=== PATIENT | male | born 1985 | race Caucasian/White ===

== ENCOUNTER 2018-11-16 15:49 | Emergency (ER) | payer MEDICAID ==
[~2018-11-16] VITALS: Ht 182.9 cm; Wt 136.4 kg
[2018-11-16] MEDS ORDERED: proparacaine 0.5% ophthalmic drops 15ml EACHEYE ONE (16:40)
== END 2018-11-16 18:13 | disposition home or self-care (01) ==
LOC: ER 15:51
DX: S05.01XA Injury of conjunctiva and corneal abrasion without foreign body, right eye, initial encounter (principal); F17.200 Nicotine dependence, unspecified, uncomplicated; Z88.6 Allergy status to analgesic agent; W22.8XXA Striking against or struck by other objects, initial encounter; Y93.89 Activity, other specified; Y92.89 Other specified places as the place of occurrence of the external cause; Y99.8 Other external cause status
CPT/HCPCS: 99283

== ENCOUNTER 2019-02-25 12:45 | Emergency (ER) | payer MEDICAID ==
[~2019-02-25] VITALS: Ht 182.9 cm; Wt 120.0 kg
[2019-02-25] MEDS ORDERED: SULF1TAB49 PO (14:03)
[2019-02-25 14:28] VITALS: BP 153/102
== END 2019-02-25 14:30 | disposition home or self-care (01) ==
LOC: ER 12:46
DX: L02.215 Cutaneous abscess of perineum (principal); L02.31 Cutaneous abscess of buttock; F17.200 Nicotine dependence, unspecified, uncomplicated; F10.99 Alcohol use, unspecified with unspecified alcohol-induced disorder; Z88.6 Allergy status to analgesic agent; Z79.899 Other long term (current) drug therapy; Y90.9 Presence of alcohol in blood, level not specified
CPT/HCPCS: 99283

== ENCOUNTER 2020-02-18 22:27 | Emergency (ER) | payer MEDICAID, OTHER ==
[~2020-02-18] VITALS: Ht 182.9 cm; Wt 110.2 kg
[2020-02-18 22:32] VITALS: BP 134/83
--- NOTE | 2020-02-18 23:39 | NUR ---
awaiting testicular us.
--- NOTE | 2020-02-19 01:17 | NUR ---
has requested patient give a urine sample, he has refused straight cath and says he cannot urinate. Dr. Watson is aware and says he is just delaying care.
--- NOTE | 2020-02-19 01:45 | NUR ---
PT REFUSING TO GIVE URINE SAMPLE AND PATIENT REFUSES TO ALLOW A CATH UA. EDICATED PATIENT THAT A URINE SPECIAMN NEEDS TO BE OBTAINED TO DX TX. PT STILL PRETTY ADAMIT ABOUT NOT GIVING A URINE SAMPLE , PT STATING THAT HE HAS A PAROLE APPT AT 09 AND NEEDS DOCUMENTATION THAT HE IS BEING SEEN . PT STILL REFUSING TO GIVE URINE SAMPLE , TO DX , STATING HE WANTS TO LEAVE .
--- NOTE | 2020-02-19 01:47 | NUR ---
SPOKE WITH DR SALINAS AND CHARGE NURSE ABOUT PT WANTING TO AMA . WENT TO BEDSIDE AND AND EXPLAINED TO PATINE HE COULD HAVE A TECTCLE INFECTION OR UTI AND NEEDS TO PROVIDE A URINE SAMPLE . PT STILL REFUSING AT THIS TIME MD AND CHARGE NURSE AWARE.
--- NOTE | 2020-02-19 02:00 | NUR ---
PT AMA . VERBALIZED TO PATIENT HE IS LEAVING AGAINST MEDICAL ADVICE THAT HE RUNS THE RISK OF HAVING AN INFECTION THAT MAY GET WORSE OR EVEN DATH , PT VERBALIZED HE "UNDERSTANDS AND WANTS TO LEAVE NOW !"
== END 2020-02-19 02:00 | disposition left against medical advice (07) ==
LOC: ER 22:27
DX: N50.811 Right testicular pain (principal); N50.812 Left testicular pain; F17.200 Nicotine dependence, unspecified, uncomplicated; Z88.6 Allergy status to analgesic agent
CPT/HCPCS: 76870; 93976; 99284

== ENCOUNTER 2024-01-25 12:03 | Emergency (ER) | payer MEDICAID ==
[~2024-01-25] VITALS: Ht 182.9 cm; Wt 100.8 kg
[2024-01-25 12:11] VITALS: BP 142/92; PULSE 95; O2SAT 99
[2024-01-25] MEDS ORDERED: SULF1TAB49 PO (12:35)
[2024-01-25 13:10] VITALS: RESP 16; TEMP 98.4
== END 2024-01-25 13:12 | disposition home or self-care (01) ==
LOC: ER 12:03
DX: L02.239 Carbuncle of trunk, unspecified (principal); L02.229 Furuncle of trunk, unspecified; Z88.8 Allergy status to other drugs, medicaments and biological substances; Z79.899 Other long term (current) drug therapy
CPT/HCPCS: 99283; A6449

== ENCOUNTER 2024-03-21 23:38 | Inpatient (IN) | payer MEDICAID ==
[~2024-03-21] VITALS: Ht 188 cm; Wt 92.8 kg
[~2024-03-21 23:38] MED LIST: SULF1TAB49 PO
[2024-03-22 00:15] LABS: BASOPHILS % (AUTO) 0.4 % (0-1); EOSINOPHILS # (AUTO) 0.1 X10'3 (0-0.9); EOSINOPHILS % (AUTO) 0.8 % (0-6); HEMATOCRIT 36.9 % (42.0-52.0); HEMOGLOBIN 12.8 g/dl (14.0-17.9); LYMPHOCYTES # (AUTO) 2.4 X10'3 (1.1-4.8); LYMPHOCYTES % (AUTO) 18.8 % (21-51); MEAN CORPUSCULAR HEMOGLOBIN 31.8 PG (27.0-31.0); MEAN CORPUSCULAR HGB CONC 34.6 g/dL (33.0-36.5); MEAN PLATELET VOLUME 7.4 FL (7.4-10.4); MONOCYTES # (AUTO) 1.1 X10'3 (0-0.9); MONOCYTES % (AUTO) 8.7 % (2-12); NEUTROPHILS % (AUTO) 71.3 % (42-75); PLATELET COUNT 319 X10'3 (140-440); RED BLOOD COUNT 4.02 X10'6 (4.70-6.10); RED CELL DISTRIBUTION WIDTH 13.2 % (11.5-14.5); WHITE BLOOD COUNT 12.6 X10'3 (4.5-11.0)
[2024-03-22] MEDS: BUPIVAcaine/PF 7.5 mg/ml (0.75%) 30ml vial IJ ONE (00:15)
[2024-03-22 00:31] LABS: ALANINE AMINOTRANSFERASE 21 U/L (12-78); ALBUMIN 3.9 G/DL (3.4-5.0); ALKALINE PHOSPHATASE 95 IU/L (46-116); ANION GAP 10 (8-16); ASPARTATE AMINO TRANSFERASE 19 U/L (10-37); BILIRUBIN,TOTAL 0.6 MG/DL (0.1-1.0); BLOOD UREA NITROGEN 21 MG/DL (7-18); BUN/CREATININE RATIO 16.9 (10.0-20.0); CALCIUM 9.3 MG/DL (8.5-10.1); CHLORIDE 102 MMOL/L (99-107); CREATININE 1.24 MG/DL (0.60-1.10); GLUCOSE 117 MG/DL (70-104); POTASSIUM 3.6 MMOL/L (3.5-5.1); SODIUM 138 MMOL/L (135-145); TOTAL PROTEIN 7.9 G/DL (6.4-8.2); eCRCL 90 ML/MIN; eGFR 66 ML/MIN
[2024-03-22] MEDS: VANCOMYCIN 1,500MG inj. 1,500 MG in normal saline 500ml IV soln 300 ML IV ONE (01:39)
[2024-03-22] MEDS: TETanus/Pertussis (Acell)/Diphther VAC/PF (Tdap-Adult) 0.5ml syringe IMVAC ONE (03:24)
[2024-03-22] MEDS ORDERED: acetaminophen 325mg tablet PO PRN ×2 (04:05)
[2024-03-22] MEDS ORDERED: ondansetron/PF 4mg/2ml inj IV PRN (04:05)
[2024-03-22] MEDS ORDERED: mag hydrox/Alum hydrox/simeth 30ml oral suspension PO PRN (04:05)
[2024-03-22] MEDS ORDERED: potassium Cl 40MEQ/1/2NS 520ml 520 ML IV PRN (04:05)
[2024-03-22] MEDS ORDERED: magnesium Cl slow-release 64mg tablet PO PRN (04:05)
[2024-03-22] MEDS: normal saline 1000ml 1,000 ML IV SCH (04:05)
[2024-03-22] MEDS ORDERED: potassium Cl 20 mEq SR tablet PO PRN ×2 (04:05)
[2024-03-22] MEDS ORDERED: magnesium sulf-water 4G/100mL 100 ML IV PRN (04:05)
[2024-03-22] MEDS ORDERED: magnesium sulf-water 2g/50mL 50 ML IV PRN (04:05)
[2024-03-22] MEDS ORDERED: VANCOmycin 1250MG/NS 250ml Bag 250 ML IV SCH (05:00)
[2024-03-22] MEDS: K and/or MAG REPLACEMENT MC SCH (08:00)
[2024-03-22] MEDS: piperacillin/tazo 3.375gm/50ml 50 ML IV SCH (08:00)
[2024-03-22] MEDS: morphine 2 MG/ML inj. syringe IV PRN (11:21)
[2024-03-22] MEDS: HYDROcodone/acetaminophen 5mg/325mg tablet PO PRN (11:22)
[2024-03-22] MEDS: LORazepam 2 mg/ml vial IV ONE (12:21)
[2024-03-22] MEDS: VANCOmycin 1250MG/NS 250ml Bag 250 ML IV SCH (17:00)
[2024-03-22 18:00] VITALS: BP 118/67; PULSE 59; RESP 20; TEMP 97.2; O2SAT 95
[2024-03-22 22:00] VITALS: BP 117/82; PULSE 86; RESP 16; TEMP 97.4; O2SAT 96
[2024-03-23 06:23] VITALS: BP 110/69; PULSE 69; RESP 17; TEMP 96.8; O2SAT 100
[2024-03-23 06:40] LABS: BASOPHILS % (AUTO) 0.4 % (0-1); EOSINOPHILS # (AUTO) 0.1 X10'3 (0-0.9); EOSINOPHILS % (AUTO) 1.3 % (0-6); HEMATOCRIT 35.2 % (42.0-52.0); HEMOGLOBIN 12.1 g/dl (14.0-17.9); LYMPHOCYTES # (AUTO) 1.9 X10'3 (1.1-4.8); LYMPHOCYTES % (AUTO) 26.9 % (21-51); MEAN CORPUSCULAR HEMOGLOBIN 32.3 PG (27.0-31.0); MEAN CORPUSCULAR HGB CONC 34.5 g/dL (33.0-36.5); MEAN CORPUSCULAR VOLUME 93.7 FL (78-98); MEAN PLATELET VOLUME 8.2 FL (7.4-10.4); MONOCYTES # (AUTO) 0.6 X10'3 (0-0.9); MONOCYTES % (AUTO) 8.1 % (2-12); NEUTROPHILS # (AUTO) 4.5 X10'3 (1.8-7.7); NEUTROPHILS % (AUTO) 63.3 % (42-75); PLATELET COUNT 257 X10'3 (140-440); RED BLOOD COUNT 3.76 X10'6 (4.70-6.10); RED CELL DISTRIBUTION WIDTH 13.1 % (11.5-14.5); WHITE BLOOD COUNT 7.1 X10'3 (4.5-11.0)
[2024-03-23 06:51] LABS: ALANINE AMINOTRANSFERASE 15 U/L (12-78); ALBUMIN 2.9 G/DL (3.4-5.0); ALBUMIN/GLOBULIN RATIO 0.8 (1.1-1.5); ALKALINE PHOSPHATASE 69 IU/L (46-116); ANION GAP 7 (8-16); ASPARTATE AMINO TRANSFERASE 16 U/L (10-37); BILIRUBIN,TOTAL 0.5 MG/DL (0.1-1.0); BLOOD UREA NITROGEN 12 MG/DL (7-18); BUN/CREATININE RATIO 11.5 (10.0-20.0); CALCIUM 8.8 MG/DL (8.5-10.1); CHLORIDE 106 MMOL/L (99-107); CREATININE 1.04 MG/DL (0.60-1.10); GLUCOSE 85 MG/DL (70-104); MAGNESIUM 1.6 MG/DL (1.5-2.4); PHOSPHORUS 2.9 MG/DL (2.3-4.5); POTASSIUM 4.3 MMOL/L (3.5-5.1); SODIUM 140 MMOL/L (135-145); TOTAL PROTEIN 6.4 G/DL (6.4-8.2); eCRCL 114 ML/MIN; eGFR 81 ML/MIN
[2024-03-23 08:00] VITALS: RESP 16; O2SAT 97
[2024-03-23 10:08] VITALS: BP 124/65; PULSE 80; RESP 16; TEMP 97.9; O2SAT 98
[2024-03-23] MEDS: vancomycin/NS 1 GM ADD-VANTAGE 250 ML IV SCH (13:41)
[2024-03-23] MEDS ORDERED: SULF1TAB49 PO ×2 (14:23→14:49)
[2024-03-23] MEDS ORDERED: VANCOMYCIN LEVEL IV ONE (16:30)
[2024-03-24] MEDS ORDERED: VANCOMYCIN LEVEL IV ONE (12:30)
== END 2024-03-23 15:10 | disposition home or self-care (01) | DRG 720 ==
LOC: ER 23:38 → UNDOADMIN 03-22 04:10 → ED HOLD 03-22 04:10 → ORTHO 4S 03-22 08:45 → ED HOLD 03-22 08:45 → UNDODISIN 03-23 15:10
PROVIDERS: ADMIT Internal Medicine Critical Care Medicine; ATTEND Family Medicine
DX: A41.9 Sepsis, unspecified organism (principal); N17.9 Acute kidney failure, unspecified; L03.115 Cellulitis of right lower limb; R79.89 Other specified abnormal findings of blood chemistry; Z88.6 Allergy status to analgesic agent
CPT/HCPCS: 36415; 73130; 73218; 80053; 83036; 83605; 83735; 84100; 84145; 85025; 87040; 87070; 87075; 87077; 87081; 87186; 90471; 90715; 96365; 99285; A6258; G0378; J2060; J2270; J2543; J3370; J7030; J7040

== ENCOUNTER 2024-05-17 00:57 | Emergency (ER) | payer MEDICAID ==
[~2024-05-17] VITALS: Ht 185.4 cm; Wt 93.0 kg
[2024-05-17 00:59] VITALS: BP 139/85; PULSE 95; RESP 16; TEMP 99.2; O2SAT 100
[2024-05-17] MEDS ORDERED: ondansetron/PF 4mg/2ml inj IV ONE (02:25)
[2024-05-17] MEDS ORDERED: CEPH-585 PO (02:31)
[2024-05-17] MEDS: bacitracin 15gm ointment TP ONE (02:48)
[2024-05-17] MEDS: ondansetron 4mg rapidly disintigrating tab PO STA (02:48)
[2024-05-17] MEDS: cephalexin 250mg capsule PO ONE (02:49)
== END 2024-05-17 02:59 | disposition home or self-care (01) ==
LOC: ER 00:57
DX: L72.3 Sebaceous cyst (principal); Z88.8 Allergy status to other drugs, medicaments and biological substances; Z79.899 Other long term (current) drug therapy
CPT/HCPCS: 10060; 99284; A6212